=== PATIENT | male | born 1980 | race Caucasian/White ===

== ENCOUNTER 2018-06-15 06:23 | Inpatient (IN) | payer OTHER ==
[2018-06-15] MEDS: SOD CHLORIDE 0.9% 1,000 ML IV ×2 (06:48→12:23)
[2018-06-15 06:50] LABS: ABNORMAL IP MESSAGE 1; HEMATOCRIT 17.8 % (42.0-52.0); MEAN CORPUSCULAR HEMOGLOBIN 29.2 pg (29.0-33.0); MEAN CORPUSCULAR HGB CONC 30.3 g/dl (32.0-37.0); MEAN CORPUSCULAR VOLUME 96.2 fl (82.0-101.0); MEAN PLATELET VOLUME 10.5 fl (7.4-10.4); NUCLEATED RED BLOOD CELLS% 0.3 /100WBC (0.0-0.0); PLATELET COUNT 227 10^3/UL (140-415); POSITIVE DIFF @See below; RED BLOOD COUNT 1.85 10^6/ul (4.70-6.10); RED CELL DISTRIBUTION WIDTH 11.6 % (11.5-14.5)
[2018-06-15 06:50] LABS: WHITE BLOOD COUNT 14.8 10^3/ul (4.8-10.8)
[2018-06-15 06:54] LABS: ADD UMIC YES; UR ASCORBIC ACID NEGATIVE (NEGATIVE); UR BILIRUBIN (Dip) NEGATIVE (NEGATIVE); UR BLOOD (Dip) 2+ mg/dL (NEGATIVE); UR CLARITY CLEAR (CLEAR); UR COLOR YELLOW (YELLOW); UR GLUCOSE (Dip) NEGATIVE (NEGATIVE); UR KETONES (Dip) NEGATIVE (NEGATIVE); UR LEUKOCYTE ESTERASE (Dip) NEGATIVE Leu/ul (NEGATIVE); UR NITRITE (Dip) NEGATIVE (NEGATIVE); UR RBC 0 /HPF (0-5); UR SPECIFIC GRAVITY (Dip) 1.014 (1.003-1.030); UR TOTAL PROTEIN (Dip) NEGATIVE (NEGATIVE); UR UROBILINOGEN (Dip) NEGATIVE (NEGATIVE); UR WBC 1 /HPF (0-5)
[2018-06-15 07:03] LABS: ADD MAN DIFF? YES; HEMOGLOBIN 5.4 g/dl (14.0-18.0)
[2018-06-15 07:07] LABS: INR 0.99; PARTIAL THROMBOPLASTIN TIME 22.2 Sec (25.0-35.0); PROTIME 13.2 Sec (11.9-14.9)
[2018-06-15 07:08] LABS: ALANINE AMINOTRANSFERASE 49 IU/L (13-69); ALBUMIN/GLOBULIN RATIO 1.29; ALKALINE PHOSPHATASE 46 IU/L (42-121); ANION GAP 10 (8-16); ASPARTATE AMINO TRANSFERASE 64 IU/L (15-46); BILIRUBIN,INDIRECT 7.1 mg/dl (0-1.1); BILIRUBIN,TOTAL 7.1 mg/dl (0.2-1.3); BLOOD UREA NITROGEN 31 mg/dl (7-20); CALCIUM 8.7 mg/dl (8.4-10.2); CARBON DIOXIDE 24 mmol/L (21-31); CHLORIDE 111 mmol/L (97-110); CREATININE 0.71 mg/dl (0.61-1.24); GLUCOSE 149 mg/dl (70-220); LIPASE 28 U/L (23-300); POTASSIUM 4.5 mmol/L (3.5-5.1); SODIUM 140 mmol/L (135-144); TOTAL PROTEIN 7.1 g/dl (6.1-8.1)
[2018-06-15 07:20] LABS: TROPONIN-I 0.019 ng/ml (0.000-0.120)
[2018-06-15 07:36] LABS: LACTATE DEHYDROGENASE 1687 IU/L (313-618)
[2018-06-15] MEDS: SOD CHLORIDE 0.9% 250 ML IV (07:45)
[2018-06-15 07:47] LABS: BAND NEUTROPHILS #M 0.7 10^3/ul (0.0-0.6); BAND NEUTROPHILS % (M) 5 % (0-4); BASOPHIL #M 0.2 10^3/ul (0.0-0.0); BASOPHILS % (M) 2 % (0-2); EOSINOPHILS % (M) 2 % (0-7); LYMPHOCYTES #M 1.1 10^3/ul (0.8-2.9); LYMPHOCYTES % (M) 8 % (15-51); METAMYELOCYTES #M 0.1 10^3/ul (0.0-0.0); METAMYELOCYTES %M 1 % (0-0); MONOCYTE #M 0.4 10^3/ul (0.3-0.9); MONOCYTES % (M) 3 % (0-11); MYELOCYTES #M 0.1 10^3/ul (0.0-0.0); MYELOCYTES % (M) 1 % (0-0); PLATELET ESTIMATE NORMAL; POLYCHROMASIA 1+ (0-0); SEG NEUT #M 11.6 10^3/ul (1.6-7.5); SEGMENTED NEUTROPHILS (M) % 78 % (39-77); SMUDGE%M 8 % (0-0)
[2018-06-15] MEDS: HYDROmorphONE 2 MG/ML SYG IV (08:38)
[2018-06-15 08:50] LABS: RETICULOCYTE RBC 1.79
[2018-06-15 08:50] LABS: RETICULOCYTE COUNT # 0.131 X10^6 (0.020-0.110); RETICULOCYTE COUNT % 7.3 % (0.5-1.5)
[2018-06-15] MEDS: ONDANSETRON 4 MG INJ IV ×2 (08:56→20:48)
[2018-06-15] MEDS: predniSONE 20 MG TAB PO (09:00)
[2018-06-15] MEDS ORDERED: ACETAMINOPHEN 325 MG TAB PO (09:30)
[2018-06-15] MEDS ORDERED: ONDANSETRON 4 MG INJ IV (09:30)
[2018-06-15] MEDS ORDERED: BISACODYL (EC) 5 MG TAB PO (10:00)
[2018-06-15] MEDS ORDERED: NACL 0.9% 3 ML SYG IV (10:00)
[2018-06-15] MEDS ORDERED: MAGNESIUM HYDROXIDE 30ML CUP PO (10:00)
[2018-06-15] MEDS: ACETAMINOPHEN 325 MG TAB PO (13:05)
[2018-06-15] MEDS: HYDROCODONE/APAP (5/325) TAB PO ×2 (17:46→23:47)
[2018-06-15] MEDS: morphine 2 MG INJ IV (20:07)
[2018-06-15] MEDS: FAMOTIDINE 20 MG INJ IV (20:10)
[2018-06-15] MEDS ORDERED: ZOLPIDEM 5 MG TAB PO (21:00)
[2018-06-16] MEDS ORDERED: CA CHLORIDE 10% 10 ML SYRINGE
[2018-06-16] MEDS ORDERED: NA BICARBONATE 8.4% 50 ML SYG
[2018-06-16] MEDS ORDERED: DEXTROSE 50% 50 ML SYRINGE
[2018-06-16] MEDS: morphine 2 MG INJ IV ×2 (00:23→04:56)
[2018-06-16] MEDS: SOD CHLORIDE 0.9% 1,000 ML IV (03:39)
[2018-06-16] MEDS: ONDANSETRON 4 MG INJ IV (05:03)
[2018-06-16] MEDS: LORAZEPAM 0.5 MG TAB PO (05:38)
[2018-06-16 05:59] LABS: IMMEDIATE SPIN CROSSMATCH 1 2
[2018-06-16] MEDS ORDERED: EPINEPHrine 0.1 MG/ML SYG ×3 (06:03)
[2018-06-16] MEDS ORDERED: predniSONE 50 MG TAB PO (09:00)
[2018-06-30 14:04] LABS: HAPTOGLOBIN <15 mg/dL (43-212)
== END 2018-06-16 06:45 | disposition expired | DRG 810 ==
LOC: E/R 06:23 → TEL 09:14
PROC: 30233N1 Transfusion of Nonautologous Red Blood Cells into Peripheral Vein, Percutaneous Approach (ICD-10-PCS; principal; 2018-06-15)
PROC: 0BH17EZ Insertion of Endotracheal Airway into Trachea, Via Natural or Artificial Opening (ICD-10-PCS; 2018-06-16)
DX: D59.1 Other autoimmune hemolytic anemias (principal); D58.2 Other hemoglobinopathies; I46.9 Cardiac arrest, cause unspecified; R10.13 Epigastric pain; R00.2 Palpitations; E80.6 Other disorders of bilirubin metabolism
CPT/HCPCS: 31500; 36415; 36430; 71045; 74176; 76705; 80053; 81001; 82962; 83010; 83615; 83690; 84484; 85025; 85045; 85610; 85730; 86850; 86860; 86870; 86880; 86885; 86900; 86901; 86902; 86906; 86920; 86970; 86971; 86978; 92950; 93005; 96374; 96375; 99285-25